=== PATIENT | female | born 1985 | race Caucasian/White ===

== ENCOUNTER 2018-09-22 13:26 | Emergency (ER) | payer OTHER ==
[2018-09-22 13:39] VITALS: BP 116/72; PULSE 70; TEMP 98.9; BMI 27.4
[2018-09-22] MEDS ORDERED: traMADol HCL 50 MG TABLET PO ONE (14:14)
[2018-09-22] MEDS ORDERED: SODIUM CHLORIDE 1,000 ML IV ONE (14:14)
[2018-09-22] MEDS ORDERED: ONDANSETRON 4 MG/2 ML VIAL IVPUSH ONE (14:14)
[2018-09-22 14:40] LABS: BASO % 0.6 % (0-2.0); EOS % 0.7 % (0-4.5); HEMATOCRIT 35.1 % (32.4-45.2); HEMOGLOBIN 11.7 GM/dL (10.7-15.3); MCH 27.8 pg (25.7-33.7); MCHC 33.3 g/dl (32.0-36.0); MEAN CELL VOLUME 83.6 fl (80-96); MONO % 6.2 % (3.8-10.2); NEUT % 60.5 % (42.8-82.8); PLATELET COUNT 221 K/MM3 (134-434); RBC 4.19 M/mm3 (3.60-5.2); RDW 14.6 % (11.6-15.6); WHITE BLOOD COUNT 7.6 K/mm3 (4.0-10.0)
--- NOTE | 2018-09-22 15:02 | PDOC ---
History of Present Illness - General History Source: Patient Exam Limitations: No Limitations - History of Present Illness Initial Comments: 09/22/18 15:09 The patient is a 33 year old female with a past medical history of asthma who presents to the emergency department for evaluation of back pain. Patient reports right sided back pain initially intermittent in frequency and mild in severity on Friday,which intensified in severity ranked 10/10 and has become constant since Friday. She notes the right sided back pain radiates down her legs and is exacerbated when she remains still for a prolonged period of time. Patient states she now has difficulty ambulating and standing due to the pain. The patient reports taking Motrin, Advil, and Aleve at various times with no alleviation to her pain. She denies any trauma to the aforementioned area or recent strenuous activity. Patient states she has not had a bowel movement since Friday, but endorses a history of chronic constipation. Patient states her LMP was last week. She notes a prior episode of similar back pain 10 years ago, which resolved in 2 days after receiving pain medication. The patient denies chest pain, shortness of breath, headache, and dizziness. Denies fevers, chills, nausea, vomiting, diarrhea, hematuria, and any urinary symptoms. Allergies: No known allergies Social History: Endorses frequent marijuana use. Denies alcohol or cigarette use. Surgical History: Denies. <Nereyda Patton - Last Filed: 09/22/18 15:09> <Magen Christy - Last Filed: 09/22/18 17:06> - General Chief Complaint: Back Pain Stated Complaint: BACK PAIN Time Seen by Provider: 09/22/18 13:57 Past History <Nereyda Patton - Last Filed: 09/22/18 15:09> - Past Medical History Asthma: Yes COPD: No GI Disorders: Yes - Immunization History Td Vaccination: Yes TDAP Vaccination: Yes Immunization Up to Date: Yes - Suicide/Smoking/Psychosocial Hx Smoking Status: No Smoking History: Never smoked Have you smoked in the past 12 months: No Number of Cigarettes Smoked Daily: 2 If you are a former smoker, when did you quit?: 2 weeks Information on smoking cessation initiated: No 'Breaking Loose' booklet given: 03/18/14 Hx Alcohol Use: No Drug/Substance Use Hx: No Substance Use Type: Marijuana Hx Substance Use Treatment: No <Bladimir Christyfaele - Last Filed: 09/22/18 17:06> - Past Medical History Allergies/Adverse Reactions: Allergies Allergy/AdvReac Type Severity Reaction Status Date / Time No Known Allergies Allergy Verified 07/13/15 16:15 Home Medications: Ambulatory Orders Albuterol Sulfate Inhaler - [Ventolin HFA Inhaler -] 1 - 2 inh IH Q4H PRN #7 inh 03/20/14 Famotidine [Pepcid -] 20 mg PO BID #60 tablet 07/15/15 Magnesium Hydrox 2400MG/30Ml [Milk of Magnesia -] 15 ml PO Q8H PRN #300 bottle 07/15/15 Cyclobenzaprine HCl [Flexeril -] 10 mg PO BID PRN #10 tablet MDD 2 tabs Naproxen 500 mg PO BID PRN #20 tablet 09/22/18 Tramadol HCl [Ultram] 50 mg PO BID PRN #10 tablet MDD 2 tabs 09/22/18 Review of Systems - Review of Systems Constitutional: No: Chills, Fever Respiratory: No: Cough, Shortness of Breath Cardiac (ROS): No: Chest Pain ABD/GI: Yes: Constipated. No: Diarrhea, Nausea, Vomiting : No: Dysuria, Frequency, Hematuria, Incontinence Integumentary: No: Bruising, Rash All Other Systems: Reviewed and Negative <Magen Christy - Last Filed: 09/22/18 17:06> *Physical Exam - Vital Signs Last Vital Signs Temp Pulse Resp BP Pulse Ox 98.9 F 70 16 116/72 100 09/22/18 13:26 09/22/18 13:26 09/22/18 13:26 09/22/18 13:26 09/22/18 13:26 - Physical Exam Comments: 09/22/18 15:10 GENERAL: The patient is awake, alert, and fully oriented, in no acute distress. HEAD: Normal with no signs of trauma. EYES: Pupils equal, round and reactive to light, extraocular movements intact, sclera anicteric, conjunctiva clear with no pallor. ENT: Ears normal, nares patent, oropharynx clear without exudates. Moist mucous membranes. NECK: Normal range of motion, supple without lymphadenopathy, JVD, or masses. LUNGS: Breath sounds equal, clear to auscultation bilaterally. No wheeze/ crackles. HEART: Regular rate and rhythm, normal S1 and S2 without murmur or rub. ABDOMEN: Soft/nontender/nondistended. BS wnl. No guarding or rebound. No palpable masses. EXTREMITIES: Normal range of motion, no edema. No clubbing or cyanosis. No cords, erythema, or tenderness. NEUROLOGICAL: (+)Reproducible tenderness along right back. (+)Right hip flexion limited by pain, otherwise 5/5 flexion and extension of hips, knees, ankles, and toes. Gait deferred for now. Cranial nerves II through XII grossly intact. Normal speech. PSYCH: Normal mood, normal affect. SKIN: Warm, Dry, normal turgor, no rashes or lesions noted. <Nereyda Patton - Last Filed: 09/22/18 15:09> - Vital Signs Last Vital Signs Temp Pulse Resp BP Pulse Ox 98.9 F 70 16 116/72 100 09/22/18 13:26 09/22/18 13:26 09/22/18 13:26 09/22/18 13:26 09/22/18 13:26 <Magen Christy - Last Filed: 09/22/18 17:06> Moderate Sedation - Procedure Monitoring Vital Signs: Procedure Monitoring Vital Signs Temperature 98.9 F 09/22/18 13:26 Pulse Rate 70 09/22/18 13:26 Respiratory Rate 16 09/22/18 13:26 Blood Pressure 116/72 09/22/18 13:26 O2 Sat by Pulse Oximetry (%) 100 09/22/18 13:26 <Nereyda Patton - Last Filed: 09/22/18 15:09> - Procedure Monitoring Vital Signs: Procedure Monitoring Vital Signs Temperature 98.9 F 09/22/18 13:26 Pulse Rate 70 09/22/18 13:26 Respiratory Rate 16 09/22/18 13:26 Blood Pressure 116/72 09/22/18 13:26 O2 Sat by Pulse Oximetry (%) 100 09/22/18 13:26 <Magen Christy - Last Filed: 09/22/18 17:06> ED Treatment Course - LABORATORY CBC & Chemistry Diagram: 09/22/18 14:25 09/22/18 14:25 - ADDITIONAL ORDERS Additional order review: 09/22/18 14:25 RBC 4.19 MCV 83.6 MCHC 33.3 RDW 14.6 D MPV 9.0 Neutrophils % 60.5 Lymphocytes % 32.0 D Monocytes % 6.2 Eosinophils % 0.7 D Basophils % 0.6 D <Nereyda Patton - Last Filed: 09/22/18 15:09> - LABORATORY CBC & Chemistry Diagram: 09/22/18 14:25 09/22/18 14:25 - ADDITIONAL ORDERS Additional order review: 09/22/18 14:25 RBC 4.19 MCV 83.6 MCHC 33.3 RDW 14.6 D MPV 9.0 Neutrophils % 60.5 Lymphocytes % 32.0 D Monocytes % 6.2 Eosinophils % 0.7 D Basophils % 0.6 D <Magen Christy - Last Filed: 09/22/18 17:06> Medical Decision Making - Medical Decision Making 09/22/18 14:58 33-year-old healthy female with no severe past medical history presents with atraumatic back pain that began initially 4 days ago with mild severity but has been persistent and more severe for the last 3 days. Very positional, radiating posteriorly down the right leg to the right knee, associated with back spasm. No urinary complaints, no nausea vomiting, baseline constipation with diarrhea. Only similar episode occurred when she was 23, she was seen in an emergency department and prescribed Percocet and her symptoms resolved after 2 days, she was diagnosed with musculoskeletal back pain. No history of recurring back pain or known disc disease. She does have a family history of renal colic. Vitals are within normal limits Alert lying in stretcher, seen ambulating next to bedside with some discomfort No midline spine tenderness No CVA tenderness Reproducible discomfort in the lower back in the paraspinal region, right worse than left. Slightly limited flexion/extension on the right secondary to low back pain, otherwise 5 out of 5 flexion and extension of both hips/knees/ankle/ toes. Neurovascularly intact distally. 33-year-old female with low back pain this seems most consistent with sciatica or radiculopathy, less likely renal colic or pelvic process. Neurologically intact, no red flags on history or physical exam. Check basic labs, urinalysis Pain control Reassess 09/22/18 16:52 labs normal, ua normal feels better after tramadol, ambulatory to restroom and stable. remains nvi. receiving toradol/valium, anticipate discharge with neuro f/u. understands return criteria, friend at bedside <Magen Christy - Last Filed: 09/22/18 17:06> *DC/Admit/Observation/Transfer - Attestations Scribe Attestion: Documentation prepared by Nereyda Patton, acting as medical secretary for Magen Christy MD. <Nereyda Patton - Last Filed: 09/22/18 15:09> <Magen Christy - Last Filed: 09/22/18 17:06> Diagnosis at time of Disposition: Sciatic leg pain Low back pain Qualifiers: Chronicity: acute Back pain laterality: bilateral Sciatica presence: with sciatica Sciatica laterality: sciatica of right side Qualified Code(s): M54.41 - Lumbago with sciatica, right side - Discharge Dispostion Disposition: HOME Condition at time of disposition: Improved - Prescriptions Prescriptions: Cyclobenzaprine HCl [Flexeril -] 10 mg PO BID PRN #10 tablet MDD 2 tabs PRN Reason: Muscle Spasms Naproxen 500 mg PO BID PRN #20 tablet PRN Reason: Pain Tramadol HCl [Ultram] 50 mg PO BID PRN #10 tablet MDD 2 tabs PRN Reason: Pain - Referrals Referrals: Doug Mccarty DO [Staff Physician] - - Patient Instructions Printed Discharge Instructions: DI for Low Back Pain, DI for Back Pain With Sciatica Additional Instructions: Activity as tolerated, avoiding bed rest and heavy lifting. Stay hydrated. Blood tests and a urine test showed no acute abnormalities. The pain is likely due to low back sprain with some involvement of the nerves which could be causing sciatic pain or a lumbar radiculopathy. Take naproxen as prescribed as needed for moderate pain (take twice daily for 5 days then as needed), take tramadol as prescribed as needed for severe pain, take Flexeril as prescribed as needed as muscle relaxant. Tramadol and Flexeril can make you lightheaded, so take proper precautions. Continue your medications as previously prescribed by your physician. You should follow up with your primary doctor as soon as possible regarding today's emergency department visit. You should also see a neurologist or pain specialist, consider calling Dr. Mccarty for an appointment. An MRI may be necessary to further evaluate the cause of your symptoms if they persist. Return to the emergency department for any new or concerning symptoms, particularly persistent or worsening pain, bowel or bladder issues, leg weakness or severe numbness, discoloration or swelling. - Post Discharge Activity Forms/Work/School Notes: Back to Work
[2018-09-22] MEDS ORDERED: ONDANSETRON 4 MG/2 ML VIAL ONE (15:08)
[2018-09-22] MEDS ORDERED: traMADol HCL 50 MG TABLET ONE (15:08)
[2018-09-22 15:14] LABS: ALBUMIN 3.6 g/dl (3.4-5.0); ALK PHOS 68 U/L (45-117); ANION GAP 3 MMOL/L (8-16); BILIRUBIN,TOTAL 0.2 mg/dL (0.2-1); BLOOD UREA NITROGEN 13 mg/dL (7-18); CALCIUM 9.2 mg/dL (8.5-10.1); CHLORIDE 106 mmol/L (98-107); CO2 30 mmol/L (21-32); CREATININE 0.7 mg/dL (0.55-1.3); GLUCOSE,RANDOM 84 mg/dL (74-106); POTASSIUM 4.5 mmol/L (3.5-5.1); SGOT/AST 8 U/L (15-37); SGPT/ALT 15 U/L (13-61); SODIUM 139 mmol/L (136-145)
[2018-09-22 15:26] LABS: URINE APPEARANCE CLEAR; URINE BILIRUBIN NEGATIVE (<2.0 mg/dL); URINE COLOR STRAW; URINE GLUCOSE (UA) NEGATIVE (NEGATIVE); URINE KETONE NEGATIVE (NEGATIVE); URINE LEUK ESTERASE TRACE (NEGATIVE); URINE NITRITE NEGATIVE (NEGATIVE); URINE PROTEIN NEGATIVE (NEGATIVE); URINE UROBILINOGEN NEGATIVE mg/dL (0.2-1.0)
[2018-09-22 15:30] LABS: EPI CELLS RARE /HPF (FEW)
[2018-09-22 15:42] LABS: HCG,QUALITATIVE URINE NEGATIVE
[2018-09-22] MEDS ORDERED: KETOROLAC TROMETHAMINE 30 MG/1 ML VIAL IVPUSH ONE (15:53)
[2018-09-22] MEDS ORDERED: diazePAM 2 MG TABLET PO ONE (15:53)
[2018-09-22] MEDS ORDERED: diazePAM 2 MG TABLET ONE (16:45)
[2018-09-22] MEDS ORDERED: KETOROLAC TROMETHAMINE 30 MG/1 ML VIAL ONE (16:46)
== END 2018-09-22 17:43 | disposition home or self-care (01) ==
LOC: JER 13:26
PROC: 3E0337Z Introduction of Electrolytic and Water Balance Substance into Peripheral Vein, Percutaneous Approach (ICD-10-PCS; principal; 2018-09-22)
PROC: 3E0333Z Introduction of Anti-inflammatory into Peripheral Vein, Percutaneous Approach (ICD-10-PCS; 2018-09-22)
PROC: 3E033GC Introduction of Other Therapeutic Substance into Peripheral Vein, Percutaneous Approach (ICD-10-PCS; 2018-09-22)
DX: M54.41 Lumbago with sciatica, right side (principal); K59.00 Constipation, unspecified; Z87.09 Personal history of other diseases of the respiratory system
CPT/HCPCS: 36415; 80053; 81003; 81015; 84703; 85025; 96361; 96374; 96375; 99281-25; J7030

== ENCOUNTER 2019-08-06 09:16 | Inpatient (IN) | payer OTHER ==
[2019-08-06] MEDS ORDERED: morphine CARPU-JECT 4 MG/1 ML DISP.SYRIN IVPUSH ONE (10:00)
[2019-08-06] MEDS ORDERED: morphine SULFATE 4 MG/ML VIAL ONE (10:23)
--- NOTE | 2019-08-06 10:31 | PDOC ---
Attending Attestation - Resident Resident Name: Brittani Pedroza - ED Attending Attestation I have performed the following: I have examined & evaluated the patient, The case was reviewed & discussed with the resident, I agree w/resident's findings & plan, Exceptions are as noted - HPI HPI: 08/06/19 10:24 33 F with h/o chronic lower back pain presents to ED with acute exacerbation of her pain. Pt reports pain since yesterday that came on spontaneously. Denies any falls/injuries/heavy lifting. She reports pain radiating down both legs. Intermittent numbness in her L leg. Pt notes that she has had difficulty urinating since 1 am this morning. Denies incontinence of stool. Endorses some saddle anesthesia. Pt states that she has pressure-like pain in her lower abdomen and the urge to urinate. Denies N/V/D. - Physicial Exam PE: 08/06/19 10:31 "GENERAL: Awake, alert, and fully oriented, in no acute distress. HEAD: No signs of trauma EYES: PERRLA, EOMI, sclera anicteric, conjunctiva clear ENT: Auricles normal inspection, hearing grossly normal, nares patent, oropharynx clear without exudates. Moist mucosa NECK: Nontender, no stepoffs, Normal ROM, supple, no lymphadenopathy, JVD, or masses LUNGS: Breath sounds equal, clear to auscultation bilaterally. No wheezes, and no crackles HEART: Regular rate and rhythm, normal S1 and S2, no murmurs, rubs or gallops ABDOMEN: + suprapubic TTP, normoactive bowel sounds. No guarding, no rebound. No masses EXTREMITIES: Normal range of motion, no edema. No clubbing or cyanosis. No cords, erythema, or tenderness NEUROLOGICAL: Cranial nerves II through XII intact. 5/5 strength and sensation in all extremities, Normal speech, normal gait, normal cerebellar function SKIN: Warm, Dry, normal turgor, no rashes or lesions noted. BACK: + midline sacral TTP - Medical Decision Making 08/06/19 10:31 33 F with lower back and abdominal pain. Will need to evaluate for cord compression/cauda equina given urinary retention. Discussed case with Dr. Batista, who requests CT prior to approving stat MRI. - Labs - CTAP to evaluate intraabdominal pathology - CT L-spine - MRI - Pain control 08/06/19 12:03 Pt able to void, PVR 0 on bedside US 08/06/19 13:17 CT shows L5-S1 narrowing with disc bulge Pt reassessed - still with severe pain despite medication Dr. Batista called again regarding stat MRI, message left 08/06/19 14:26 MRI obtained, awaiting read
[2019-08-06 10:33] LABS: BASO % 0.5 % (0-2.0); EOS % 0.9 % (0-4.5); HEMATOCRIT 37.3 % (32.4-45.2); HEMOGLOBIN 12.1 GM/dL (10.7-15.3); MCHC 32.5 g/dl (32.0-36.0); MEAN PLT VOLUME 9.2 fl (7.5-11.1); MONO % 6.8 % (3.8-10.2); NEUT % 57.8 % (42.8-82.8); PLATELET COUNT 193 K/MM3 (134-434); RBC 4.49 M/mm3 (3.60-5.2); RDW 13.7 % (11.6-15.6); WHITE BLOOD COUNT 6.9 K/mm3 (4.0-10.0)
[2019-08-06 10:44] LABS: INR 0.93 (0.83-1.09)
[2019-08-06 10:47] LABS: ACTIVATED PTT 31.3 SECONDS (25.2-36.5)
[2019-08-06 10:56] LABS: BILIRUBIN,TOTAL 0.2 mg/dL (0.2-1); BLOOD UREA NITROGEN 16.8 mg/dL (7-18); CALCIUM 9.2 mg/dL (8.5-10.1); CREATININE 0.7 mg/dL (0.55-1.3); POTASSIUM 4.9 mmol/L (3.5-5.1); TOT PROT 7.5 g/dl (6.4-8.2)
[2019-08-06] MEDS ORDERED: LIDOCAINE 5% TOPICAL PATCH TP ONE ×2 (11:08→18:43)
--- NOTE | 2019-08-06 11:08 | PDOC ---
History of Present Illness - General Chief Complaint: Pain, Acute Stated Complaint: LWR BACK PAIN Time Seen by Provider: 08/06/19 09:26 History Source: Patient Exam Limitations: No Limitations - History of Present Illness Initial Comments: 08/06/19 11:07 33y F with PMH of Asthma, Sciatica presenting to ED with complaints of lower back pain. Pt states she was sitting at her office chair when she had a sudden onset of lower back pain. The pain is severe, in the lower back and radiating to the abdomen. She states that the pain also goes to the back of her legs. She also endorses difficulty with urination (only having a few drops this AM) and constipation. Endorses numbness in the perineal area. Denies trauma, chest pain , sob, headache, recent surgeries, n/v/d. PMD: none PSH: none Meds: none Allergies: nkda Social: denies Past History - Past Medical History Allergies/Adverse Reactions: Allergies Allergy/AdvReac Type Severity Reaction Status Date / Time No Known Allergies Allergy Verified 07/13/15 16:15 Home Medications: Ambulatory Orders Albuterol Sulfate Inhaler - [Ventolin HFA Inhaler -] 1 - 2 inh IH Q4H PRN #7 inh 03/20/14 Famotidine [Pepcid -] 20 mg PO BID #60 tablet 07/15/15 Magnesium Hydrox 2400MG/30Ml [Milk of Magnesia -] 15 ml PO Q8H PRN #300 bottle 07/15/15 Cyclobenzaprine HCl [Flexeril -] 10 mg PO BID PRN #10 tablet MDD 2 tabs Naproxen 500 mg PO BID PRN #20 tablet 09/22/18 Tramadol HCl [Ultram] 50 mg PO BID PRN #10 tablet MDD 2 tabs 09/22/18 Asthma: Yes COPD: No GI Disorders: Yes - Immunization History Td Vaccination: Yes TDAP Vaccination: Yes Immunization Up to Date: Yes - Psycho Social/Smoking Cessation Hx Smoking Status: No Smoking History: Never smoked Have you smoked in the past 12 months: No Number of Cigarettes Smoked Daily: 2 If you are a former smoker, when did you quit?: 2 weeks Information on smoking cessation initiated: No 'Breaking Loose' booklet given: 03/18/14 Hx Alcohol Use: No Drug/Substance Use Hx: No Substance Use Type: Marijuana Hx Substance Use Treatment: No Review of Systems - Review of Systems Constitutional: No: Chills, Fever HEENTM: No: Symptoms Reported Respiratory: No: Symptoms reported Cardiac (ROS): No: Symptoms Reported ABD/GI: Yes: See HPI : Yes: See HPI Musculoskeletal: Yes: See HPI Integumentary: No: Symptoms Reported Neurological: Yes: See HPI *Physical Exam - Vital Signs Last Vital Signs Temp Pulse Resp BP Pulse Ox 97.9 F 74 18 115/67 100 08/06/19 09:19 08/06/19 09:19 08/06/19 09:19 08/06/19 09:19 08/06/19 09:19 - Physical Exam General Appearance: Yes: Appropriately Dressed, Severe Distress, Obese HEENT: positive: EOMI, TAVIA, Normal ENT Inspection Neck: positive: Trachea midline, Supple. negative: Lymphadenopathy (R), Lymphadenopathy (L) Respiratory/Chest: positive: Lungs Clear, Normal Breath Sounds. negative: Crackles, Rales, Rhonchi, Stridor, Wheezing Cardiovascular: positive: Regular Rhythm, Regular Rate, S1, S2. negative: Edema , JVD, Murmur Vascular Pulses: Dorsalis-Pedis (R): 2+, Doralis-Pedis (L): 2+ Gastrointestinal/Abdominal: positive: Normal Bowel Sounds, Soft. negative: Tender Musculoskeletal: positive: CVA Tenderness (R), CVA Tenderness (L), Decreased Range of Motion, Muscle Spasm (paraspinal lumbar), Vertebral Tenderness (lumbar) Extremity: positive: Normal Capillary Refill. negative: Swelling, Calf Tenderness, Erythema Integumentary: positive: Normal Color, Dry, Warm Neurologic: positive: hosted services analyst II-XII NML intact, Fully Oriented, Alert. negative: Numbness, Sensory Deficit ED Treatment Course - LABORATORY CBC & Chemistry Diagram: 08/06/19 10:00 08/06/19 10:00 - ADDITIONAL ORDERS Additional order review: Laboratory Results 08/06/19 08/06/19 08/06/19 10:00 10:00 10:00 PT with INR 11.00 INR 0.93 PTT (Actin FS) 31.3 Sodium 137 Potassium 4.9 Chloride 108 H Carbon Dioxide 26 Anion Gap 4 L BUN 16.8 Creatinine 0.7 Est GFR (CKD-EPI)AfAm 133.81 Est GFR (CKD-EPI)NonAf 115.45 Random Glucose 96 Calcium 9.2 Total Bilirubin 0.2 AST 11 L ALT 18 Alkaline Phosphatase 64 Total Protein 7.5 Albumin 4.0 Serum , Qual Negative 08/06/19 10:00 RBC 4.49 MCV 83.0 MCHC 32.5 RDW 13.7 MPV 9.2 Neutrophils % 57.8 Lymphocytes % 34.0 Monocytes % 6.8 Eosinophils % 0.9 Basophils % 0.5 - RADIOLOGY Radiology Studies Ordered: Category Date Time Status LUMBAR SPINE MRI W/O CONTRAST [MRI] Stat MRI 08/06/19 10:02 Ordered - Medications Given in the ED: ED Medications Discontinued Medications Generic Name Dose Route Start Last Admin Trade Name Freq PRN Reason Stop Dose Admin Morphine Sulfate 4 mg 08/06/19 10:00 08/06/19 10:34 Morphine Injection - IVPUSH 08/06/19 10:01 4 mg ONCE ONE Administration Medical Decision Making - Medical Decision Making 08/06/19 12:21 33y F presenting for nontraumatic severe back pain vitals wnl severe lower back tenderness/spasms, bending over bed, difficulty with ambulation and movements. limited extremity movement due to pain. is able to stand without toppling over. prevoid volume around 250-300. post void bladder not seen (normal) ddx includes but not limited to disc herniation, cauda equina, cord compression , fracture labs drawn morphine for pain. CT done at recommendation of radiologist to determine if MRI is emergent CT scan shows disc herniation ant L5S1. pending MRI normal CTAP. labs wnl. ua negative for infection given decadron, toradol, robaxin, lidoderm patch. 08/06/19 14:43 nervous in MRI. given 1 ativan, 4 morphine. 08/06/19 17:08 MRI shows large disc herniation with impingement of thecal sac and s1 nerve roots bilaterally. no spinal stenosis. pt has intractable back pain, will admit for pain control Discharge - Discharge Information Problems reviewed: Yes Clinical Impression/Diagnosis: Intractable low back pain Disc herniation Qualifiers: Spinal region: lumbar Qualified Code(s): M51.26 - Other intervertebral disc displacement, lumbar region Condition: Stable - Admission Yes - Follow up/Referral - Patient Discharge Instructions - Post Discharge Activity
[2019-08-06] MEDS ORDERED: LIDOCAINE 5% TOPICAL PATCH ONE (11:56)
[2019-08-06] MEDS ORDERED: METHOCARBAMOL 500 MG TABLET PO ONE (12:00)
[2019-08-06] MEDS ORDERED: KETOROLAC TROMETHAMINE 30 MG/1 ML VIAL IVPUSH ONE (12:03)
[2019-08-06] MEDS ORDERED: DEXAMETHASONE SOD PHOSPHATE 10 MG/1 ML VIAL IVPUSH ONE (12:10)
[2019-08-06] MEDS ORDERED: METHOCARBAMOL 500 MG TABLET ONE ×2 (12:14→12:18)
[2019-08-06] MEDS ORDERED: DEXAMETHASONE SOD PHOSPHATE 10 MG/1 ML VIAL ONE (12:15)
[2019-08-06] MEDS ORDERED: KETOROLAC TROMETHAMINE 30 MG/1 ML VIAL ONE (12:15)
[2019-08-06] MEDS ORDERED: morphine SULFATE 4 MG/ML VIAL IVPUSH ONE (14:30)
[2019-08-06] MEDS ORDERED: LORazepam 2 MG/ML SDV VIAL ONE (14:33)
[2019-08-06 15:16] LABS: URINE APPEARANCE CLEAR; URINE COLOR YELLOW
[2019-08-06 15:17] LABS: PH,URINE 5.5 (5.0-8.0); URINE BILIRUBIN NEGATIVE (NEGATIVE); URINE GLUCOSE (UA) NEGATIVE (NEGATIVE); URINE KETONE NEGATIVE (NEGATIVE); URINE PROTEIN NEGATIVE (NEGATIVE)
[2019-08-06 15:18] LABS: EPI CELLS 2.9 /HPF (0-5/HPF); HYALINE CASTS 1.1 /lpf (0-8); URINE BACTERIA 131.6 /hpf (NEGATIVE); URINE LEUK ESTERASE NEGATIVE (NEGATIVE); URINE NITRITE NEGATIVE (NEGATIVE); URINE RBC 0.8 /hpf (0-4); URINE UROBILINOGEN 0.2 mg/dL (0.2-1.0); URINE WBC 14.6 /hpf (0-5)
[2019-08-06] MEDS ORDERED: ONDANSETRON 4 MG/2 ML VIAL IVPB ONE ×2 (15:44→16:14)
[2019-08-06] MEDS ORDERED: ONDANSETRON 4 MG/2 ML VIAL ONE ×2 (17:01→20:13)
[2019-08-06] MEDS ORDERED: LACTATED RINGERS SOLUTION 1000 ML INFUS.BAG IV ONE (17:38)
--- NOTE | 2019-08-06 17:50 | HP ---
CHIEF COMPLAINT: severe back pain and inability to ambulate PCP: HISTORY OF PRESENT ILLNESS: Patient is a 33 year old female with a past medical history of sciatica for many years, chronic back pain and asthma. 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 She presents to the ED today with complaints of severe lower back pain that worsened today while at work. 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 She reports sitting in the office chair today when she began to have a sudden onset of lower back pain. Back pain is severe 10/10 in the lower back that radiates to the abdomen and in the back of her legs. She endorses difficulty with urination and difficulty with bowel movements secondary to the pain. Sometimes she strains to have a bowel movement and reports having episodes of bright red blood per rectum. She further endorses numbness to the perineal area. Denies trauma, chest pain, sob, headache, recent surgeries, n/v/ d. She states her back pain is chronic but mostly tolerable until today, she takes two Motrins and two Flexirils every night for her back pain before bed. ER course was notable for: (1) lumbar spine mri: moderate to large central L5-S1 disc herniation with mild thecal sac identation. (2) ct abd/pelvis with no evidence of acute pathology, involuting right ovarian cyst and trace free pelvic fluid. (3) no evidence seen on exam of rectal vault, one hemorroid seen Recent Travel: denies PAST MEDICAL HISTORY: one vaginal , sciatica, chronic back pain, asthma PAST SURGICAL HISTORY: Social History: Smoking: smokes marijuana daily Alcohol: none reported Drugs: denies any other drugs besides marijuana Allergies No Known Allergies Allergy (Verified 07/13/15 16:15) HOME MEDICATIONS: Home Medications Medication Instructions Recorded Albuterol Sulfate Inhaler - 1 - 2 inh IH Q4H PRN #7 inh 03/20/14 [Ventolin HFA Inhaler -] Famotidine [Pepcid -] 20 mg PO BID #60 tablet 07/15/15 Magnesium Hydrox 2400MG/30Ml [Milk 15 ml PO Q8H PRN #300 bottle 07/15/15 of Magnesia -] Cyclobenzaprine HCl [Flexeril -] 10 mg PO BID PRN #10 tablet MDD 2 09/22/18 tabs Naproxen 500 mg PO BID PRN #20 tablet 09/22/18 Tramadol HCl [Ultram] 50 mg PO BID PRN #10 tablet MDD 2 09/22/18 tabs REVIEW OF SYSTEMS CONSTITUTIONAL: Absent: fever, chills, diaphoresis, malaise, loss of appetite, weight change HEENT: Absent: rhinorrhea, nasal congestion, throat pain, throat swelling, difficulty swallowing, mouth swelling, ear pain, eye pain, visual changes CARDIOVASCULAR: Absent: chest pain, syncope, palpitations, irregular heart rate , lightheadedness, peripheral edema RESPIRATORY: Absent: cough, shortness of breath, dyspnea with exertion, orthopnea, wheezing, stridor, hemoptysis GASTROINTESTINAL:Absent: abdominal pain, abdominal distension, nausea, vomiting , diarrhea GENITOURINARY: Absent: hematuria, flank pain MUSCULOSKELETAL: Absent: myalgia, arthralgia, joint swelling, back pain, neck pain SKIN: Absent: rash, itching, pallor HEMATOLOGIC/IMMUNOLOGIC: Absent: easy bleeding, easy bruising, lymphadenopathy, frequent infections ENDOCRINE:Absent: unexplained weight gain, unexplained weight loss, heat intolerance, cold intolerance NEUROLOGIC: Absent: headache, focal weakness or paresthesias, dizziness, unsteady gait, seizure, mental status changes, bladder or bowel incontinence PSYCHIATRIC: Absent: anxiety, depression, suicidal or homicidal ideation, hallucinations. PHYSICAL EXAMINATION Vital Signs - 24 hr 08/06/19 08/06/19 09:19 16:39 Temperature 97.9 F 97.8 F Pulse Rate 74 Pulse Rate [ 96 H Right Radial] Respiratory 18 Rate Blood Pressure 115/67 Blood Pressure 107/45 L [Left Arm] O2 Sat by Pulse 100 100 Oximetry (%) GENERAL: Awake, alert, and fully oriented, having diffused pain, laying in a position in the ED, tearful HEAD: Normal with no signs of trauma. EYES: Pupils equal, round and reactive to light, extraocular movements intact, sclera anicteric, conjunctiva clear. No lid lag. EARS, NOSE, THROAT: Ears normal, nares patent, oropharynx clear without exudates. Moist mucous membranes. NECK: Normal range of motion, supple without lymphadenopathy, JVD, or masses. LUNGS: Breath sounds equal, clear to auscultation bilaterally. HEART: Regular rate and rhythm ABDOMEN: Soft, nontender, not distended, normoactive bowel sounds, no guarding, no rebound, no masses. No hepatomegaly or splenomegaly. UPPER EXTREMITIES: No peripheral edema. LOWER EXTREMITIES: No peripheral edema. NEUROLOGICAL: awake, alert, facial symmetry PSYCHIATRIC: Cooperative. Good eye contact. Laboratory Results - last 24 hr 08/06/19 08/06/19 08/06/19 10:00 10:00 10:00 WBC 6.9 RBC 4.49 Hgb 12.1 Hct 37.3 MCV 83.0 MCH 27.0 MCHC 32.5 RDW 13.7 Plt Count 193 MPV 9.2 Absolute Neuts (auto) 4.0 Neutrophils % 57.8 Lymphocytes % 34.0 Monocytes % 6.8 Eosinophils % 0.9 Basophils % 0.5 Nucleated RBC % 0 PT with INR 11.00 INR 0.93 PTT (Actin FS) 31.3 Sodium 137 Potassium 4.9 Chloride 108 H Carbon Dioxide 26 Anion Gap 4 L BUN 16.8 Creatinine 0.7 Est GFR (CKD-EPI)AfAm 133.81 Est GFR (CKD-EPI)NonAf 115.45 Random Glucose 96 Calcium 9.2 Total Bilirubin 0.2 AST 11 L ALT 18 Alkaline Phosphatase 64 Total Protein 7.5 Albumin 4.0 Serum , Qual Urine Color Urine Appearance Urine pH Ur Specific [place] Urine Protein Urine Glucose (UA) Urine Ketones Urine Blood Urine Nitrite Urine Bilirubin Urine Urobilinogen Ur Leukocyte Esterase Urine WBC (Auto) Urine RBC (Auto) Urine Casts (Auto) U Epithel Cells (Auto) Urine Bacteria (Auto) Blood Type Antibody Screen 08/06/19 08/06/19 08/06/19 10:00 10:00 12:00 WBC RBC Hgb Hct MCV MCH MCHC RDW Plt Count MPV Absolute Neuts (auto) Neutrophils % Lymphocytes % Monocytes % Eosinophils % Basophils % Nucleated RBC % PT with INR INR PTT (Actin FS) Sodium Potassium Chloride Carbon Dioxide Anion Gap BUN Creatinine Est GFR (CKD-EPI)AfAm Est GFR (CKD-EPI)NonAf Random Glucose Calcium Total Bilirubin AST ALT Alkaline Phosphatase Total Protein Albumin Serum , Qual Negative Urine Color Yellow Urine Appearance Clear Urine pH 5.5 D Ur Specific [place] 1.046 H Urine Protein Negative Urine Glucose (UA) Negative Urine Ketones Negative Urine Blood Negative Urine Nitrite Negative Urine Bilirubin Negative Urine Urobilinogen 0.2 Ur Leukocyte Esterase Negative Urine WBC (Auto) 14.6 Urine RBC (Auto) 0.8 Urine Casts (Auto) 1.1 U Epithel Cells (Auto) 2.9 Urine Bacteria (Auto) 131.6 Blood Type B NEGATIVE Antibody Screen Negative ASSESSMENT/PLAN: Family Medical History Family Hx Cardiac Disorders: Mother Other Family History: mother: hypertension, osteoporosis, bipolar depression, glaucoma, benign hand tumors. Problem List - Problem (1) Disc herniation Assessment/Plan: Patient with severe sudden onset of back pain of lumbar/sacral spine. given morphine 4mg, decadron and tylenol on admission lumbar spine mri shows moderate to large central L5-S1 disc herniation with mild thecal sac identation. ct abd/pelvis with no evidence of acute pathology, involuting right ovarian cyst and trace free pelvic fluid. will start on oxycodone, gabapentin, lidoderm patch for pain management with a bowel regimen neurosurgeon consulted by the ED. Code(s): [id number] - Qualifiers: Spinal region: lumbar Qualified Code(s): M51.26 - Other intervertebral disc displacement, lumbar region (2) Intractable low back pain Assessment/Plan: pain management and physical therapy ordered patient for evaluation by surgery Code(s): M54.5 - LOW BACK PAIN (3) Asthma Assessment/Plan: not in acute exacerbation, tolerating room air, no wheezing Code(s): J45.909 - UNSPECIFIED ASTHMA, UNCOMPLICATED (4) Constipation Assessment/Plan: bowel regimen, colace, miralax Code(s): K59.00 - CONSTIPATION, UNSPECIFIED (5) DVT prophylaxis Assessment/Plan: lovenox 40mg daily Code(s): [id number] - (6) Low back pain Code(s): M54.5 - LOW BACK PAIN Qualifiers: Chronicity: acute Back pain laterality: bilateral Sciatica presence: with sciatica Sciatica laterality: sciatica of right side Qualified Code(s) : M54.41 - Lumbago with sciatica, right side (7) Nausea and vomiting Assessment/Plan: resolved, tolerating diet Code(s): R11.2 - NAUSEA WITH VOMITING, UNSPECIFIED Visit type - Emergency Visit Emergency Visit: Yes ED Registration Date: 08/06/19 Care time: The patient presented to the Emergency Department on the above date and was hospitalized for further evaluation of their emergent condition. - New Patient This patient is new to me today: Yes Date on this admission: 08/07/19 - Critical Care Critical Care patient: No
[2019-08-06] MEDS ORDERED: oxyCODONE HCL 5 MG TABLET PO PRN (18:37)
[2019-08-06] MEDS ORDERED: ALBUTEROL SO4 2.5/IPRATROPIUM 0.5 INH SOL 3 ML VIAL.NEB. NEB PRN (18:42)
[2019-08-06] MEDS ORDERED: SENNOSIDES 8.6MG TABLET (FP) PO PRN (18:45)
[2019-08-06] MEDS ORDERED: IBUPROFEN 600 MG TABLET (FP) PO ONE (19:43)
[2019-08-06] MEDS: ONDANSETRON 4 MG/2 ML VIAL IVPUSH PRN (20:21)
[2019-08-06] MEDS: POLYETHYLENE GLYCOL 3350 119 GM BTL PO SCH (21:07)
[2019-08-06] MEDS ORDERED: LIDOCAINE PATCH REMOVAL MC SCH ×2 (22:00)
[2019-08-06] MEDS: oxyCODONE HCL 5 MG TABLET PO PRN (23:18)
[2019-08-06] MEDS: CYCLOBENZAPRINE HCL 5 MG TABLET PO SCH (23:19)
[2019-08-06] MEDS: DOCUSATE SODIUM 100 MG CAPSULE (FP) PO SCH (23:19)
[2019-08-07] MEDS: DOCUSATE SODIUM 100 MG CAPSULE (FP) PO SCH ×3 (05:10→21:42)
[2019-08-07] MEDS: CYCLOBENZAPRINE HCL 5 MG TABLET PO SCH ×3 (05:11→21:43)
[2019-08-07 05:34] VITALS: BMI 32.1
[2019-08-07 07:40] LABS: HEMATOCRIT 35.5 % (32.4-45.2); HEMOGLOBIN 11.6 GM/dL (10.7-15.3); MCHC 32.6 g/dl (32.0-36.0); MEAN CELL VOLUME 82.8 fl (80-96); MEAN PLT VOLUME 9.4 fl (7.5-11.1); PLATELET COUNT 190 K/MM3 (134-434); RBC 4.29 M/mm3 (3.60-5.2); RDW 13.8 % (11.6-15.6)
[2019-08-07 08:18] LABS: ALBUMIN 3.7 g/dl (3.4-5.0); BILIRUBIN,TOTAL 0.4 mg/dL (0.2-1); CREATININE 0.7 mg/dL (0.55-1.3); MAGNESIUM 2.2 mg/dL (1.8-2.4); TOT PROT 7.3 g/dl (6.4-8.2)
[2019-08-07] MEDS: oxyCODONE HCL 5 MG TABLET PO PRN (08:30)
[2019-08-07] MEDS: ONDANSETRON 4 MG/2 ML VIAL IVPUSH PRN (08:44)
--- NOTE | 2019-08-07 08:46 | EKG ---
Test Reason : Blood Pressure : / mmHG Vent. Rate : 063 BPM Atrial Rate : 063 BPM P-R Int : 164 ms QRS Dur : 084 ms QT Int : 398 ms P-R-T Axes : -13 041 029 degrees QTc Int : 407 ms NORMAL SINUS RHYTHM CANNOT RULE OUT ANTERIOR INFARCT , AGE UNDETERMINED ABNORMAL ECG WHEN COMPARED WITH ECG OF 01-SEP-2011 04:48, VENT. RATE HAS DECREASED BY 40 BPM Confirmed by ROXANNA ISLAS MD ([id number]) on 08/07/2019 8:46:25 AM Referred By: Confirmed By:ROXANNA ISLAS MD
--- NOTE | 2019-08-07 09:42 | PN ---
Progress Note (short form) - Note Progress Note: NEUROSURGERY CONSULT DICTATED Chart reviewed pt examined CT/MRI reviewed Chronic LBP and sciatica. h/o asthma. LBP x 6 years ago after lifting a large piece of marble during home renovations. Severe lower back pain that worsened yesterday. R > L. Denies any heavy lifting or falls. Pain is severe 10/10 in the lower back that radiates to the abdomen and in the back of her post thighs, calves R > L. Difficulty with urination and difficulty with bowel movements secondary to the pain. +numbness to the perineal area. No incontinence. PVR negligible in ED. Morphine and lidoderm did not help. PE: AF, VSS HEENT- NC/AT;Neck- supple; Cor- RRR; Lungs- CTA B; Abd- benign; Ext- no sign of DVT CN- intact; Motor- 4+/5 B UE/LE pain limited; Sensation- intact LT/PP/vibration ; DTR- 2+ throughout Back- tender over sacrum; + SLR R at 2- degrees L at [address]- Central L5-S1 disc protrusion, no fx, no spondylolisthesis, no stenosis MRI- Cental L5-S1 disc protrusion with mild thecal sac impingement; minimal facet changes Moderate central L5-S1 HNP with LBP and B S1 radiculopathy R > L Given relatively young age and minimal neurological deficits would manage medically (since surgert would to involve decompression and fusion given symptoms an MRI pathology) Decadron 4 mg q 6 hrs short pulse Protonix Nucynta for pain meds to minimize GI side effects PT Lumbar support Consider EPSI if persistent pain
[2019-08-07] MEDS ORDERED: GABAPENTIN 100 MG CAPSULE PO SCH (10:00)
[2019-08-07] MEDS: ENOXAPARIN NA (PORCINE) 40 MG/0.4 ML DISP.SYRIN SQ SCH (10:11)
[2019-08-07] MEDS: PANTOPRAZOLE 40 MG TABLET PO SCH (10:11)
[2019-08-07] MEDS: POLYETHYLENE GLYCOL 3350 119 GM BTL PO SCH (10:11)
[2019-08-07] MEDS: DEXAMETHASONE SOD PHOSPHATE 4 MG/1 ML VIAL IVPUSH SCH ×3 (10:25→21:42)
--- NOTE | 2019-08-07 11:11 | PN ---
Physical Exam: SUBJECTIVE: Patient seen and examined at the bedside. pain improving slightly, pain medications changed by neurosurgery. ambulated 20 feet with PT. OBJECTIVE: Patient is a 33 year old female with a past medical history of sciatica for many years, chronic back pain and asthma. 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 She presents to the ED with complaints of severe lower back pain that worsened today while at work. 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 She reports sitting in the office chair when she began to have a sudden onset of lower back pain. Back pain is severe 10/10 in the lower back that radiates to the abdomen and in the back of her legs. She endorses difficulty with urination and difficulty with bowel movements secondary to the pain. Denies trauma or falls. Denies any work related injury. Vital Signs Period Temp Pulse Resp BP Sys/[place] Pulse Ox Last 24 Hr 97.8 F-98.4 F 68-96 18-18 107-137/45-88 100-100 GENERAL: Awake, alert, and fully oriented, having diffused pain HEAD: Normal with no signs of trauma. EYES: Pupils equal, round and reactive to light, extraocular movements intact, sclera anicteric, conjunctiva clear. No lid lag. EARS, NOSE, THROAT: Ears normal, nares patent, oropharynx clear without exudates. Moist mucous membranes. NECK: Normal range of motion, supple without lymphadenopathy, JVD, or masses. LUNGS: Breath sounds equal, clear to auscultation bilaterally. HEART: Regular rate and rhythm ABDOMEN: Soft, nontender, not distended, normoactive bowel sounds, no guarding, no rebound, no masses. No hepatomegaly or splenomegaly. UPPER EXTREMITIES: No peripheral edema. LOWER EXTREMITIES: No peripheral edema. NEUROLOGICAL: awake, alert, facial symmetry PSYCHIATRIC: Cooperative. Good eye contact. Laboratory Results - last 24 hr 08/06/19 08/06/19 08/07/19 10:00 12:00 06:40 WBC 8.0 RBC 4.29 Hgb 11.6 Hct 35.5 MCV 82.8 MCH 27.0 MCHC 32.6 RDW 13.8 Plt Count 190 MPV 9.4 Sodium Potassium Chloride Carbon Dioxide Anion Gap BUN Creatinine Est GFR (CKD-EPI)AfAm Est GFR (CKD-EPI)NonAf Random Glucose Calcium Magnesium Total Bilirubin AST ALT Alkaline Phosphatase Total Protein Albumin Urine Color Yellow Urine Appearance Clear Urine pH 5.5 D Ur Specific [place] 1.046 H Urine Protein Negative Urine Glucose (UA) Negative Urine Ketones Negative Urine Blood Negative Urine Nitrite Negative Urine Bilirubin Negative Urine Urobilinogen 0.2 Ur Leukocyte Esterase Negative Urine WBC (Auto) 14.6 Urine RBC (Auto) 0.8 Urine Casts (Auto) 1.1 U Epithel Cells (Auto) 2.9 Urine Bacteria (Auto) 131.6 Blood Type B NEGATIVE Antibody Screen Negative 08/07/19 06:40 WBC RBC Hgb Hct MCV MCH MCHC RDW Plt Count MPV Sodium 137 Potassium 4.0 Chloride 106 Carbon Dioxide 25 Anion Gap 6 L BUN 15.0 Creatinine 0.7 Est GFR (CKD-EPI)AfAm 133.81 Est GFR (CKD-EPI)NonAf 115.45 Random Glucose 101 Calcium 9.0 Magnesium 2.2 Total Bilirubin 0.4 AST 12 L ALT 17 Alkaline Phosphatase 53 Total Protein 7.3 Albumin 3.7 Urine Color Urine Appearance Urine pH Ur Specific [place] Urine Protein Urine Glucose (UA) Urine Ketones Urine Blood Urine Nitrite Urine Bilirubin Urine Urobilinogen Ur Leukocyte Esterase Urine WBC (Auto) Urine RBC (Auto) Urine Casts (Auto) U Epithel Cells (Auto) Urine Bacteria (Auto) Blood Type Antibody Screen Active Medications Generic Name Dose Route Start Last Admin Trade Name Freq PRN Reason Stop Dose Admin Acetaminophen 650 mg 08/06/19 18:42 Tylenol - PO Q6H PRN PAIN LEVEL 1 - 3 Albuterol/Ipratropium 1 amp 08/06/19 18:42 Duoneb - NEB Q6H PRN SHORTNESS OF BREATH Cyclobenzaprine HCl 5 mg 08/06/19 22:00 08/07/19 05:11 Cyclobenzaprine Hcl PO 5 mg TID ANDREWS Administration Dexamethasone Sodium Phosphate 4 mg 08/07/19 10:00 08/07/19 10:25 Decadron Injection - IVPUSH 4 mg Q6H-IV ANDREWS Administration Docusate Sodium 100 mg 08/06/19 22:00 08/07/19 05:10 Colace - PO 100 mg TID ANDREWS Administration Enoxaparin Sodium 40 mg 08/07/19 10:00 08/07/19 10:11 Lovenox - SQ 40 mg DAILY ANDREWS Administration Gabapentin 300 mg 08/07/19 14:00 Neurontin - PO TID ANDREWS Ondansetron HCl 4 mg 08/06/19 19:02 08/07/19 08:44 Zofran Injection IVPUSH 4 mg Q6H PRN Administration NAUSEA Pantoprazole Sodium 40 mg 08/07/19 10:00 08/07/19 10:11 Protonix - PO 40 mg DAILY ANDREWS Administration Polyethylene Glycol 17 gm 08/06/19 18:45 08/07/19 10:11 Miralax (For Daily Use) - PO 17 gm DAILY ANDREWS Administration Senna 2 tab 08/06/19 18:45 Senna - PO HS PRN CONSTIPATION Tapentadol 50 mg 08/07/19 09:57 Nucynta - PO Q4H PRN PAIN LEVEL 6-10 ASSESSMENT/PLAN: Problem List - Problems (1) Disc herniation Assessment/Plan: Patient with severe sudden onset of back pain of lumbar/sacral spine. given morphine 4mg, decadron and tylenol on admission, but pain not controlled. seen by neurosurgery and started on decadron 4mg iv q4 and tapentadol 50mg q4 physical therapy, pain management, incentive spirometer, bowel regimen, monitor urinary output imaging: lumbar spine mri shows moderate to large central L5-S1 disc herniation with mild thecal sac identation. ct abd/pelvis with no evidence of acute pathology, involuting right ovarian cyst and trace free pelvic fluid. Code(s): [id number] - Qualifiers: Spinal region: lumbar Qualified Code(s): M51.26 - Other intervertebral disc displacement, lumbar region (2) Intractable low back pain Assessment/Plan: pain management and physical therapy ordered patient for evaluation by surgery Code(s): M54.5 - LOW BACK PAIN (3) Asthma Assessment/Plan: not in acute exacerbation, tolerating room air, no wheezing Code(s): J45.909 - UNSPECIFIED ASTHMA, UNCOMPLICATED (4) Constipation Assessment/Plan: bowel regimen, colace, miralax Code(s): K59.00 - CONSTIPATION, UNSPECIFIED (5) Low back pain Code(s): M54.5 - LOW BACK PAIN Qualifiers: Chronicity: acute Back pain laterality: bilateral Sciatica presence: with sciatica Sciatica laterality: sciatica of right side Qualified Code(s) : M54.41 - Lumbago with sciatica, right side (6) Nausea and vomiting Assessment/Plan: resolved, tolerating diet Code(s): R11.2 - NAUSEA WITH VOMITING, UNSPECIFIED (7) DVT prophylaxis Assessment/Plan: lovenox 40mg daily Code(s): [id number] - Visit type - Emergency Visit Emergency Visit: Yes ED Registration Date: 08/06/19 Care time: The patient presented to the Emergency Department on the above date and was hospitalized for further evaluation of their emergent condition. - New Patient This patient is new to me today: No - Critical Care Critical Care patient: No - Discharge Referral Referred to [facility] No
[2019-08-07] MEDS: TAPENTADOL HYDROCHLORIDE 50 MG TABLET PO PRN (12:45)
--- NOTE | 2019-08-07 13:38 | CONS ---
DATE OF CONSULTATION: 08/07/2019 REQUESTING PHYSICIAN: RN CVOR: Frank Manley MD, Neurosurgery CHIEF COMPLAINT: Intractable lower back pain with bilateral lumbar radiculopathy. HISTORY OF PRESENT ILLNESS: Patient is a 33-year-old, right-handed female with history of chronic lower back pain, sciatica, and asthma, who complains of a 6-year history of lower back pain. It first occurred when she was at home lifting heavy materials, during a home improvement project. She has developed pain going down to her buttock, posterior thigh, and calf. She experiences occasional exacerbations. 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 She did not lift anything heavy, but started with just sitting down in her chair, when she felt increasing lower back pain radiating down to her buttock, posterior thigh, and calf. This is more prominent on the right side. She has significant tailbone pain. She also has some buttock-area numbness. She went to the emergency room for evaluation. She stated that she has some difficulty with urination, but postvoid residual was 0. She has no incontinence. She also has some constipation. The patient had previously been treating her lower back with Motrin and Ultram and using a back brace. 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 PAST MEDICAL HISTORY: Significant for lower back pain, sciatica, and asthma. CURRENT MEDICATIONS: Include morphine, Lovenox, Neurontin, DuoNeb, Zofran, Colace and senna, and Protonix. ALLERGIES: There is no known drug allergy. FAMILY HISTORY: Noncontributory. SOCIAL HISTORY: She does not smoke and only drinks alcohol socially. She lives at home. 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 REVIEW OF SYSTEMS: Otherwise negative for major constitutional, head and neck, cardiovascular, pulmonary, gastrointestinal, genitourinary, endocrinological, neurological or psychological problem except for the above. PHYSICAL EXAMINATION: Vital Signs: Temperature is 98.2, blood pressure is 123/71, with a pulse rate of 68. HEENT: Examination shows her to be normocephalic, atraumatic, anicteric. Neck: Supple. Abdomen: Soft, nontender, and nondistended with active bowel sounds. Extremities: Examination shows no signs of DVT. Neurologic: She is awake, alert, and oriented x3. Cranial nerves examination is intact 2 through 12. Motor examination shows 4+/5 strength of the upper and lower extremities, limited by pain, this includes dorsiflexion and plantarflexion. Sensory examination is intact to light touch, vibratory sensation, and pinprick. Deep tendon reflexes are 2+ throughout. There is no pathological long-tract sign. Examination of the lower back shows exquisite tenderness over the lumbosacral junction, especially over her sacrum. She has a positive straight leg raise on the right at 20 degrees and a positive straight leg raise on the left at 30 degrees. Gait was not tested for safety reasons. Cerebellar exam demonstrated intact [id number] examination. LABORATORY EVALUATION: Shows a white blood cell count of 8, hemoglobin 11.6, platelet count is 190,000. INR is 0.93 and PTT 31.3. Serum sodium is 137, potassium is 4.0. BUN and creatinine are 15 and 0.7, respectively. LFTs normal. Urine test is negative. Urinalysis shows 15 WBC, and 1 RBC, leukocyte esterase was negative. IMAGING: CT scan lumbar spine demonstrated L5-S1 degenerative disk space narrowing with central disk protrusion. There is no significant spinal stenosis. MRI of the lumbar spine demonstrated L5-S1 degenerative disk space. There is a moderate size central disk protrusion at L5-S1 with some mild thecal sac indentation, but there is no significant compression. There is no marked stenosis at any level. CT scan of the abdomen reported the presence of a right ovarian cyst with trace fluid. IMPRESSION: 1. Central disk protrusion at L5-S1 with lower back pain and right greater than left lower extremity radiculopathy. 2. Asthma. 3. Right ovarian cyst, by report. RECOMMENDATIONS: Patient presents with acute onset lower back pain and bilateral lumbar radiculopathy. She has had chronic lower back pain for 6-plus years. She experienced a pain radiating down to her lower back, tailbone, buttock, posterior thigh, and the calves. This is more prominent on the right side. Because of her persistent symptoms, aggressive medical pain management is recommended. I took the liberty of putting her on Decadron 4 mg IV q.6 hours. She is already taking Protonix. She is also on stool softeners. She has chronic constipation even at baseline. She has no urinary or bowel incontinence and her postvoid residual in the emergency room was negligible. Given the MRI appearance, even though there is slight thecal sac indentation at L5-S1, there is no significant neurological element of compression. Therefore, it is unlikely for the current pathology to cause cauda equina syndrome. Hopefully, with a combination of steroids and rest, her symptoms will improve. I did order an abdominal binder for her to use when she is out of bed. She also uses a back brace at home, anyway. I increased her Neurontin to 300 mg p.o. t.i.d. I also changed her pain medication from Percocet to Nucynta 50 mg 1 p.o. q.4 hours p.r.n. to decrease the potential GI side effects. The above plan was reviewed with the patient. All questions were answered. Surgery should be avoided if possible, given that she is relatively young, and there is only mild neurological element of impingement at this time. Further, if surgery is to be done, it would need to consist of both decompression and fusion at the L5-S1 level, which one would like to avoid in such a young person if possible. Obviously, if she develops significant neurological deficit, surgery will be indicated. The above was discussed with the patient and she concurred with the treatment plan and recommendations. FRANK MANLEY M.D. [id number]
[2019-08-07] MEDS ORDERED: PT OWN MED DRAWER 7, Y5N ONE ×2 (14:36→20:20)
[2019-08-07] MEDS: METHYL SALICYLATE/MENTHOL OINT 30 GM TUBE TP SCH ×2 (14:38→21:42)
[2019-08-07] MEDS: GABAPENTIN 300 MG CAPSULE PO SCH ×2 (14:38→21:43)
[2019-08-08] MEDS: DEXAMETHASONE SOD PHOSPHATE 4 MG/1 ML VIAL IVPUSH SCH ×4 (02:30→21:14)
[2019-08-08] MEDS: TAPENTADOL HYDROCHLORIDE 50 MG TABLET PO PRN ×2 (06:30→21:15)
[2019-08-08] MEDS: GABAPENTIN 300 MG CAPSULE PO SCH ×3 (06:45→21:16)
[2019-08-08] MEDS: DOCUSATE SODIUM 100 MG CAPSULE (FP) PO SCH ×3 (06:45→21:16)
[2019-08-08] MEDS: CYCLOBENZAPRINE HCL 5 MG TABLET PO SCH ×3 (06:45→21:16)
[2019-08-08 07:31] LABS: BILIRUBIN,TOTAL 0.4 mg/dL (0.2-1); BLOOD UREA NITROGEN 17.4 mg/dL (7-18); CALCIUM 9.8 mg/dL (8.5-10.1); CREATININE 0.7 mg/dL (0.55-1.3); MAGNESIUM 2.6 mg/dL (1.8-2.4); POTASSIUM 4.4 mmol/L (3.5-5.1)
[2019-08-08 07:42] LABS: BASO % 0.1 % (0-2.0); HEMATOCRIT 38.2 % (32.4-45.2); HEMOGLOBIN 12.4 GM/dL (10.7-15.3); LYMPH % 10.7 % (8-40); MCH 26.8 pg (25.7-33.7); MCHC 32.4 g/dl (32.0-36.0); MEAN CELL VOLUME 82.8 fl (80-96); MEAN PLT VOLUME 9.8 fl (7.5-11.1); MONO % 2.6 % (3.8-10.2); NEUT % 86.6 % (42.8-82.8); PLATELET COUNT 210 K/MM3 (134-434); RBC 4.61 M/mm3 (3.60-5.2); RDW 13.9 % (11.6-15.6); WHITE BLOOD COUNT 10.4 K/mm3 (4.0-10.0)
[2019-08-08] MEDS ORDERED: PT OWN MED DRAWER 7, Y5N ONE (09:12)
--- NOTE | 2019-08-08 09:22 | PN ---
Progress Note (short form) - Note Progress Note: NEUROSURGERY Pain better; no sciatica. Standing up better with abdominal binder on. Some subjective weakness. Still can't sit down well. No difficulty with urination though with chronic constipation. No numbness to the perineal area. No incontinence. On Nucynta, Neurontin, and iv decadron. PE: AF, VSS HEENT- NC/AT;Neck- supple; Cor- RRR; Lungs- CTA B; Abd- benign; Ext- no sign of DVT CN- intact; Motor- 5/5 B UE/LE; Sensation- intact LT/PP/vibration; DTR- 2+ throughout Back- tender over sacrum; + SLR R at 30 degrees L at [address]- Central L5-S1 disc protrusion, no fx, no spondylolisthesis, no stenosis MRI- Cental L5-S1 disc protrusion with mild thecal sac impingement; minimal facet changes Moderate central L5-S1 HNP with LBP and B S1 radiculopathy R > L Given relatively young age and minimal neurological deficits would manage medically (since surgert would to involve decompression and fusion given symptoms an MRI pathology) Cont Decadron Decadron 4 mg q 6 hrs, witch to po medrol 4 mg tomorrow Protonix PT Lumbar support (pt has back brace at home) EPSI if persistent pain Outpatient pain management referral
[2019-08-08] MEDS: PANTOPRAZOLE 40 MG TABLET PO SCH (09:29)
[2019-08-08] MEDS: ACETAMINOPHEN 325 MG TABLET (FP) PO PRN (09:30)
[2019-08-08] MEDS: ENOXAPARIN NA (PORCINE) 40 MG/0.4 ML DISP.SYRIN SQ SCH (09:30)
[2019-08-08] MEDS: POLYETHYLENE GLYCOL 3350 119 GM BTL PO SCH (09:30)
[2019-08-08] MEDS: METHYL SALICYLATE/MENTHOL OINT 30 GM TUBE TP SCH ×2 (09:35→21:20)
[2019-08-08] MEDS ORDERED: BISACODYL 10 MG SUPP.RECT RC ONE (14:45)
--- NOTE | 2019-08-08 14:45 | PN ---
Physical Exam: SUBJECTIVE: Patient seen and examined, reports feeling better, pain better controlled. reports constipation 2 days. OBJECTIVE: Patient is a 33 year old female with a past medical history of sciatica for many years, chronic back pain and asthma. 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 She presents to the ED with complaints of severe lower back pain that worsened while at work. lumbar spine mri shows moderate/large central l5- s1 disc herniation. patient is being followed by neurosurgery. imaging: lumbar spine mri shows moderate to large central L5-S1 disc herniation with mild thecal sac identation. ct abd/pelvis with no evidence of acute pathology, involuting right ovarian cyst and trace free pelvic fluid. Vital Signs Period Temp Pulse Resp BP Sys/Galindo Pulse Ox Last 24 Hr 98.2 F-98.3 F 63-82 20-20 114-127/62-74 GENERAL: Awake, alert, and fully oriented, pain better controlled. HEAD: Normal with no signs of trauma. EYES: Pupils equal, round and reactive to light, extraocular movements intact, sclera anicteric, conjunctiva clear. No lid lag. EARS, NOSE, THROAT: Ears normal, nares patent, oropharynx clear without exudates. Moist mucous membranes. NECK: Normal range of motion, supple without lymphadenopathy, JVD, or masses. LUNGS: Breath sounds equal, clear to auscultation bilaterally. HEART: Regular rate and rhythm ABDOMEN: Soft, nontender, not distended, normoactive bowel sounds, no guarding, no rebound, no masses. No hepatomegaly or splenomegaly. UPPER EXTREMITIES: No peripheral edema. LOWER EXTREMITIES: No peripheral edema. NEUROLOGICAL: awake, alert PSYCHIATRIC: Cooperative. Good eye contact. Laboratory Results - last 24 hr 08/08/19 08/08/19 05:35 05:35 WBC 10.4 H RBC 4.61 Hgb 12.4 Hct 38.2 MCV 82.8 MCH 26.8 MCHC 32.4 RDW 13.9 Plt Count 210 MPV 9.8 Absolute Neuts (auto) 9.0 H Neutrophils % 86.6 H D Lymphocytes % 10.7 D Monocytes % 2.6 L Eosinophils % 0.0 D Basophils % 0.1 Nucleated RBC % 0 Sodium 138 Potassium 4.4 Chloride 106 Carbon Dioxide 24 Anion Gap 8 BUN 17.4 Creatinine 0.7 Est GFR (CKD-EPI)AfAm 133.81 Est GFR (CKD-EPI)NonAf 115.45 Random Glucose 109 H Calcium 9.8 Magnesium 2.6 H Total Bilirubin 0.4 AST 10 L ALT 18 Alkaline Phosphatase 55 Total Protein 8.0 Albumin 4.0 Active Medications Generic Name Dose Route Start Last Admin Trade Name Freq PRN Reason Stop Dose Admin Acetaminophen 650 mg 08/06/19 18:42 08/08/19 09:30 Tylenol - PO 650 mg Q6H PRN Administration PAIN LEVEL 1 - 3 Albuterol/Ipratropium 1 amp 08/06/19 18:42 Duoneb - NEB Q6H PRN SHORTNESS OF BREATH Bisacodyl 10 mg 08/08/19 14:45 Dulcolax Suppository - RC 08/08/19 14:46 ONCE ONE Cyclobenzaprine HCl 5 mg 08/06/19 22:00 08/08/19 13:10 Cyclobenzaprine Hcl PO 5 mg TID ANDREWS Administration Dexamethasone Sodium Phosphate 4 mg 08/07/19 10:00 08/08/19 09:30 Decadron Injection - IVPUSH 4 mg Q6H-IV ANDREWS Administration Docusate Sodium 100 mg 08/06/19 22:00 08/08/19 13:10 Colace - PO 100 mg TID ANDREWS Administration Enoxaparin Sodium 40 mg 08/07/19 10:00 08/08/19 09:30 Lovenox - SQ 40 mg DAILY ANDREWS Administration Gabapentin 300 mg 08/07/19 14:00 08/08/19 13:10 Neurontin - PO 300 mg TID ANDREWS Administration Methyl Salicylate 1 applic 08/07/19 11:30 08/08/19 09:35 Marcelino-Coleman - TP 1 applic BID ANDREWS Administration Pantoprazole Sodium 40 mg 08/07/19 10:00 08/08/19 09:29 Protonix - PO 40 mg DAILY ANDREWS Administration Polyethylene Glycol 17 gm 08/06/19 18:45 08/08/19 09:30 Miralax (For Daily Use) - PO 17 gm DAILY ANDREWS Administration Senna 2 tab 08/06/19 18:45 Senna - PO HS PRN CONSTIPATION Tapentadol 50 mg 08/07/19 09:57 08/08/19 06:30 Nucynta - PO 50 mg Q4H PRN Administration PAIN LEVEL 6-10 ASSESSMENT/PLAN: Problem List - Problems (1) Disc herniation Assessment/Plan: pain better controlled. On nucynta, neurontin, and iv decadron. neurosurgery following and notes reviewed. imaging: lumbar spine mri shows moderate to large central L5-S1 disc herniation with mild thecal sac identation. ct abd/pelvis with no evidence of acute pathology, involuting right ovarian cyst and trace free pelvic fluid. Code(s): [id number] - Qualifiers: Spinal region: lumbar Qualified Code(s): M51.26 - Other intervertebral disc displacement, lumbar region (2) Intractable low back pain Assessment/Plan: pain management and physical therapy ordered. outpatient pain management followup. Code(s): M54.5 - LOW BACK PAIN (3) Asthma Assessment/Plan: not in acute exacerbation, tolerating room air, no wheezing Code(s): J45.909 - UNSPECIFIED ASTHMA, UNCOMPLICATED (4) Constipation Assessment/Plan: bowel regimen, colace, miralax Code(s): K59.00 - CONSTIPATION, UNSPECIFIED (5) Low back pain Code(s): M54.5 - LOW BACK PAIN Qualifiers: Chronicity: acute Back pain laterality: bilateral Sciatica presence: with sciatica Sciatica laterality: sciatica of right side Qualified Code(s) : M54.41 - Lumbago with sciatica, right side (6) Nausea and vomiting Assessment/Plan: resolved, tolerating diet Code(s): R11.2 - NAUSEA WITH VOMITING, UNSPECIFIED (7) DVT prophylaxis Assessment/Plan: lovenox 40mg daily Code(s): SSC3026 - Visit type - Emergency Visit Emergency Visit: Yes ED Registration Date: 08/06/19 Care time: The patient presented to the Emergency Department on the above date and was hospitalized for further evaluation of their emergent condition. - New Patient This patient is new to me today: No - Critical Care Critical Care patient: No - Discharge Referral Referred to [facility] No
[2019-08-09] MEDS: DEXAMETHASONE SOD PHOSPHATE 4 MG/1 ML VIAL IVPUSH SCH (02:33)
[2019-08-09] MEDS: TAPENTADOL HYDROCHLORIDE 50 MG TABLET PO PRN (02:33)
[2019-08-09] MEDS: CYCLOBENZAPRINE HCL 5 MG TABLET PO SCH ×2 (06:34→13:20)
[2019-08-09] MEDS: DOCUSATE SODIUM 100 MG CAPSULE (FP) PO SCH ×2 (06:34→13:19)
[2019-08-09] MEDS: GABAPENTIN 300 MG CAPSULE PO SCH ×2 (06:34→13:19)
[2019-08-09] MEDS ORDERED: methylPREDNISolone 4 MG TABLET PO ONE (08:45)
[2019-08-09 08:54] LABS: HEMATOCRIT 39.3 % (32.4-45.2); LYMPH % 14.2 % (8-40); MCH 27.3 pg (25.7-33.7); MCHC 33.2 g/dl (32.0-36.0); MEAN CELL VOLUME 82.3 fl (80-96); MEAN PLT VOLUME 9.1 fl (7.5-11.1); MONO % 2.6 % (3.8-10.2); NEUT % 83.2 % (42.8-82.8); PLATELET COUNT 212 K/MM3 (134-434); RBC 4.78 M/mm3 (3.60-5.2); RDW 13.3 % (11.6-15.6); WHITE BLOOD COUNT 10.5 K/mm3 (4.0-10.0)
[2019-08-09] MEDS: ACETAMINOPHEN 325 MG TABLET (FP) PO PRN (09:11)
[2019-08-09] MEDS: ENOXAPARIN NA (PORCINE) 40 MG/0.4 ML DISP.SYRIN SQ SCH (09:12)
[2019-08-09] MEDS: PANTOPRAZOLE 40 MG TABLET PO SCH (09:12)
[2019-08-09] MEDS: POLYETHYLENE GLYCOL 3350 119 GM BTL PO SCH (09:13)
[2019-08-09] MEDS: METHYL SALICYLATE/MENTHOL OINT 30 GM TUBE TP SCH (09:17)
[2019-08-09] MEDS ORDERED: PT OWN MED DRAWER 7, Y5N ONE (09:21)
[2019-08-09 09:53] LABS: ALBUMIN 4.1 g/dl (3.4-5.0); BILIRUBIN,TOTAL 0.4 mg/dL (0.2-1); BLOOD UREA NITROGEN 18.7 mg/dL (7-18); CALCIUM 9.3 mg/dL (8.5-10.1); CREATININE 0.8 mg/dL (0.55-1.3); POTASSIUM 4.3 mmol/L (3.5-5.1); TOT PROT 8.4 g/dl (6.4-8.2)
[2019-08-09] MEDS ORDERED: LIDOCAINE 5% TOPICAL PATCH TP SCH (10:30)
--- NOTE | 2019-08-09 10:43 | PN ---
Progress Note (short form) - Note Progress Note: NEUROSURGERY Pain worse with sitting Walking better PE: AF, VSS HEENT- NC/AT;Neck- supple; Cor- RRR; Lungs- CTA B; Abd- benign; Ext- no sign of DVT CN- intact; Motor- 5/5 B UE/LE; Sensation- intact LT/PP/vibration; DTR- 2+ throughout Back- tender over sacrum MRI- Central L5-S1 disc protrusion with mild thecal sac impingement; minimal facet changes Moderate central L5-S1 HNP with LBP and B S1 radiculopathy R > L: improved over 3-4 days ago Home on medrol dosepack Protonix PT/core strengthening Lumbar support (pt has back brace at home) Outpatient pain management referral
[2019-08-09] MEDS ORDERED: KETOROLAC TROMETHAMINE 10 MG TABLET PO SCH (12:00)
--- NOTE | 2019-08-09 12:18 | DS ---
Physical Exam: SUBJECTIVE: Patient seen and examined, pain improved and ambulating better. OBJECTIVE: Patient is a 33 year old female with a past medical history of sciatica for many years, chronic back pain and asthma. 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 She presents to the ED with complaints of severe lower back pain that worsened while at work. lumbar spine mri shows moderate/large central l5- s1 disc herniation. patient is being followed by neurosurgery. imaging: lumbar spine mri shows moderate to large central L5-S1 disc herniation with mild thecal sac identation. ct abd/pelvis with no evidence of acute pathology, involuting right ovarian cyst and trace free pelvic fluid. Vital Signs Period Temp Pulse Resp BP Sys/Galindo Pulse Ox Last 24 Hr 98.2 F-98.6 F 66-82 20-20 121-126/68-74 100 PHYSICAL EXAM GENERAL: Awake, alert, and fully oriented, pain better controlled. HEAD: Normal with no signs of trauma. EYES: Pupils equal, round and reactive to light, extraocular movements intact, sclera anicteric, conjunctiva clear. No lid lag. EARS, NOSE, THROAT: Ears normal, nares patent, oropharynx clear without exudates. Moist mucous membranes. NECK: Normal range of motion, supple without lymphadenopathy, JVD, or masses. LUNGS: Breath sounds equal, clear to auscultation bilaterally. HEART: Regular rate and rhythm ABDOMEN: Soft, nontender, not distended, normoactive bowel sounds, no guarding, no rebound, no masses. No hepatomegaly or splenomegaly. UPPER EXTREMITIES: No peripheral edema. LOWER EXTREMITIES: No peripheral edema. NEUROLOGICAL: awake, alert PSYCHIATRIC: Cooperative. Good eye contact. LABS Laboratory Results - last 24 hr 08/09/19 08/09/19 08:00 08:00 WBC 10.5 H RBC 4.78 Hgb 13.0 Hct 39.3 MCV 82.3 MCH 27.3 MCHC 33.2 RDW 13.3 Plt Count 212 MPV 9.1 Absolute Neuts (auto) 8.7 H Neutrophils % 83.2 H Lymphocytes % 14.2 D Monocytes % 2.6 L Eosinophils % 0.0 Basophils % 0.0 Nucleated RBC % 0 Sodium 137 Potassium 4.3 Chloride 105 Carbon Dioxide 26 Anion Gap 7 L BUN 18.7 H Creatinine 0.8 Est GFR (CKD-EPI)AfAm 113.86 Est GFR (CKD-EPI)NonAf 98.24 Random Glucose 104 Calcium 9.3 Total Bilirubin 0.4 AST 4 L ALT 17 Alkaline Phosphatase 57 Total Protein 8.4 H Albumin 4.1 HOSPITAL COURSE: Date of Admission:08/06/19 Date of Discharge: 08/09/19 Minutes to complete discharge: 45 Discharge Summary Problems reviewed: Yes Reason For Visit: BACK PAIN Current Active Problems Disc herniation (Acute) Intractable low back pain (Acute) Condition: Stable - Instructions Diet, Activity, Other Instructions: Ms Seymour: You were admitted for moderate to large central L5-S1 disc herniation and we treated your pain with steriods and pain medications. You were evaluated by Dr. Rodriguez and we will be sending you referrals for both Dr. Rodriguez and a picture painter. Here are our recommendations: Back Pain Please take Toradol every 6 hours as needed for back pain if your pain is not severe. If your pain is severe, we will be sending you home with a few doses of oxycodone. It is best that you try and take the Toradol first and oxycodone for severe pain. Please follow up with your primary care doctor as well as Dr. Rodriguez and pain specialist. Thank you for allowing us to care for you. Asha Osmel [facility] [phone] Referrals: Frank Rodriguez MD [Staff Physician] - Joseph Tubbs MD [Staff Physician] - Disposition: HOME - Home Medications Comprehensive Discharge Medication List: Ambulatory Orders Albuterol Sulfate Inhaler - [Ventolin HFA Inhaler -] 1 - 2 inh IH Q4H PRN #7 inh 03/20/14 Famotidine [Pepcid -] 20 mg PO BID #60 tablet 07/15/15 Magnesium Hydrox 2400MG/30Ml [Milk of Magnesia -] 15 ml PO Q8H PRN #300 bottle 07/15/15 Cyclobenzaprine HCl [Flexeril -] 10 mg PO BID PRN #10 tablet MDD 2 tabs Naproxen 500 mg PO BID PRN #20 tablet 09/22/18 Tramadol HCl [Ultram] 50 mg PO BID PRN #10 tablet MDD 2 tabs 09/22/18 Ketorolac Tromethamine [Toradol] 10 mg PO Q6H #28 tablet 08/09/19 Methylprednisolone [Medrol Dose Chong] 4 mg PO ASDIR #21 tablet 08/09/19 Oxycodone HCl 5 mg PO BID 5 Days #10 tablet MDD 2 08/09/19 Problem List - Problems (1) Disc herniation Assessment/Plan: pain better controlled and ambulation improved significantly. will d/c home with pain medications and medrol taper. She agrees to outpatient follow up with Dr. Rodriguez. imaging: lumbar spine mri shows moderate to large central L5-S1 disc herniation with mild thecal sac identation. ct abd/pelvis with no evidence of acute pathology, involuting right ovarian cyst and trace free pelvic fluid. Code(s): [id number] - Qualifiers: Spinal region: lumbar Qualified Code(s): M51.26 - Other intervertebral disc displacement, lumbar region (2) Intractable low back pain Assessment/Plan: pain management and physical therapy ordered. outpatient pain management followup. Code(s): M54.5 - LOW BACK PAIN (3) Asthma Assessment/Plan: not in acute exacerbation, tolerating room air, no wheezing Code(s): J45.909 - UNSPECIFIED ASTHMA, UNCOMPLICATED (4) Constipation Assessment/Plan: resolved Code(s): K59.00 - CONSTIPATION, UNSPECIFIED (5) Low back pain Code(s): M54.5 - LOW BACK PAIN Qualifiers: Chronicity: acute Back pain laterality: bilateral Sciatica presence: with sciatica Sciatica laterality: sciatica of right side Qualified Code(s) : M54.41 - Lumbago with sciatica, right side (6) Nausea and vomiting Assessment/Plan: resolved, tolerating diet Code(s): R11.2 - NAUSEA WITH VOMITING, UNSPECIFIED (7) DVT prophylaxis Code(s): [id number] - This patient is new to me today: No Emergency Visit: Yes ED Registration Date: 08/06/19 Care time: The patient presented to the Emergency Department on the above date and was hospitalized for further evaluation of their emergent condition. Critical Care patient: No - Discharge Referral Referred to [facility] No
[2019-08-09 12:28] VITALS: BP 130/68; PULSE 82; TEMP 98.1
[2019-08-09] MEDS ORDERED: LIDOCAINE PATCH REMOVAL MC SCH (22:00)
== END 2019-08-09 15:02 | disposition home or self-care (01) | DRG 347 ==
LOC: JER 09:16 → JERBED 17:14 → J8W 23:14
PROVIDERS: ADMIT Internal Medicine; ATTEND Nurse Practitioner Family
DX: M51.27 Other intervertebral disc displacement, lumbosacral region (principal); J45.909 Unspecified asthma, uncomplicated; K59.09 Other constipation; M54.41 Lumbago with sciatica, right side; R11.2 Nausea with vomiting, unspecified; N83.291 Other ovarian cyst, right side
CPT/HCPCS: 36415; 71045-TC-FY; 72131-TC; 72148-TC; 74177-TC; 80053; 81003; 83735; 84703; 85025; 85027; 85610; 85730; 86850; 86900; 86901; 87086; 93005; 93010; 94010; 97116-GP; 97162-GP; 99285-25; J1100; Q9967